=== PATIENT | male | born 1940 | race African-American/Black ===

== ENCOUNTER 2017-06-06 19:00 | Emergency (ER) | payer MEDICARE, OTHER | END 2017-06-06 21:59 | disposition home or self-care (01) | LOC: ER 19:00 | DX: K94.29 Other complications of gastrostomy (principal) | CPT/HCPCS: 74018; 99284 ==

== ENCOUNTER 2017-07-20 16:05 | Emergency (ER) | payer MEDICARE, OTHER ==
[2017-07-20] MEDS ORDERED: CONTRAST GIVEN MC (17:15)
[2017-07-20] MEDS: IOHEXOL 240 MG/ML 50ML VIAL. PO (17:37)
== END 2017-07-20 19:00 | disposition home or self-care (01) ==
LOC: ER 16:05
DX: K94.23 Gastrostomy malfunction (principal); I11.9 Hypertensive heart disease without heart failure; E11.39 Type 2 diabetes mellitus with other diabetic ophthalmic complication; H40.9 Unspecified glaucoma; Z86.73 Personal history of transient ischemic attack (TIA), and cerebral infarction without residual deficits; G47.419 Narcolepsy without cataplexy; Y84.8 Other medical procedures as the cause of abnormal reaction of the patient, or of later complication, without mention of misadventure at the time of the procedure; Y82.8 Other medical devices associated with adverse incidents
CPT/HCPCS: 51702; 74018; 99284-25; Q9966

== ENCOUNTER 2017-07-21 07:13 | Emergency (ER) | payer MEDICARE, OTHER | END 2017-07-21 08:56 | disposition home or self-care (01) | LOC: ER 07:13 | DX: Z43.1 Encounter for attention to gastrostomy (principal); E11.51 Type 2 diabetes mellitus with diabetic peripheral angiopathy without gangrene; E11.39 Type 2 diabetes mellitus with other diabetic ophthalmic complication; H40.9 Unspecified glaucoma; K21.9 Gastro-esophageal reflux disease without esophagitis; I11.9 Hypertensive heart disease without heart failure; Z86.73 Personal history of transient ischemic attack (TIA), and cerebral infarction without residual deficits | CPT/HCPCS: 43760; 99284-25 ==

== ENCOUNTER 2018-04-23 23:57 | Observation (INO) | payer MEDICARE, OTHER ==
[~2018-04-23] VITALS: Ht 182.9 cm; Wt 84.9 kg
[~2018-04-23 23:57] MED LIST: ASPI-482 PO; CHOL10003 PO; DIVA250T PO; INSU100I13 SQ; METF850T8 PO; MULT-208 PO; TIMO5DRO5 EACHEYE; TRAV2.5D2 OU
[2018-04-24] MEDS ORDERED: LIDOCAINE/EPI/TETRACAINE TOPICAL GEL 3 ML. TP ONE (00:19)
[2018-04-24] MEDS ORDERED: LIDOCAINE 2% JELLY 6ML IN APPLICATOR. MM ONE (00:30)
--- NOTE | 2018-04-24 00:35 | PHYS DOC ---
Past Medical History Past Medical History: CVA, Depression, Diabetes-Type II, GERD, Glaucoma, Heart Disease, Hypertension, Stroke, Other Additional Past Medical Histor: PVD, NARCOLEPSY, WEAKNESS, DYSPHAGIA, BLINDNESS , COGNITIVE COMMUNICATION D/ Past Surgical History: Other Additional Past Surgical Histo: PEG TUBE PLACEMENT, UNKNOWN Alcohol Use: None Drug Use: None Adult General Chief Complaint Chief Complaint: GTUBE REPLACEMENT/MALFUNCTION HPI HPI Patient is a 78-year-old male who [facility] from [facility] with report that they found that patient had pulled his feeding tube. Staff were not able to give estimate of time as to when tube was pulled; however, patient had been sent over yesterday for the same complaint and reportedly had the tube replaced. Unable to obtain additional history from patient as patient has an expressive aphasia associated with prior stroke. Review of Systems Review of Systems Constitutional: Denies fever or chills [] Respiratory: Denies shortness of breath [] Cardiovascular: No additional information not addressed in HPI [] GI: Denies vomiting or diarrhea [] Unable to fully assess review of systems due to nonverbal state. Current Medications Current Medications Current Medications Medications (Trade) Dose Ordered Sig/Wayne Start Time Stop Time Status Last Admin Dose Admin Lidocaine HCl (Glydo (Lidocaine) Jelly) 1 becca 1X ONCE 04/24/18 00:30 04/24/18 00:31 DC Lidocaine/ Epinephrine (Let Topical) 3 ml STK-MED ONCE 04/24/18 00:19 04/24/18 00:21 DC Allergies Allergies Allergies Coded Allergies Type Severity Reaction Last Updated Verified No Known Drug Allergies 02/06/15 No Physical Exam Physical Exam Constitutional: Well developed, well nourished, no acute distress, non-toxic appearance. [] HENT: Normocephalic, atraumatic, bilateral external ears normal, oropharynx moist, no oral exudates, nose normal. [] Eyes: PERRLA, EOMI, conjunctiva normal, no discharge. [] Neck: Normal range of motion, no tenderness, supple, no stridor. [] Cardiovascular: Regular rate and rhythm [] Lungs & Thorax: Bilateral breath sounds clear to auscultation [] Abdomen: Bowel sounds normal, soft, no tenderness. In the left upper quadrant of the abdomen there is an ostomy site. Tissue is granulated over, closed. [] Skin: Warm, dry, no erythema, no rash. [] Extremities: No tenderness, no cyanosis, no clubbing. [] Neurologic: Awake and alert, no focal deficits noted. [] Current Patient Data Vital Signs Vital Signs Date Time Temp Pulse Resp B/P (MAP) Pulse Ox O2 Delivery O2 Flow Rate FiO2 04/24/18 00:07 97.1 63 20 175/83 (113) 100 Room Air 97.1 EKG EKG [] Radiology/Procedures Radiology/Procedures [] Course & Med Decision Making Course & Med Decision Making Pertinent Labs and Imaging studies reviewed. (See chart for details) Area around the stoma cleaned and draped in normal sterile fashion and lidocaine jelly was used for local anesthesia. An attempt was initially made with an 18 Omani G-tube without success. At this point a 16 Omani coud catheter was utilized in attempt to establish access through stoma without success. Patient will be admitted and GI consulted for replacement of PEG tube. Dragon Disclaimer Dragon Disclaimer This electronic medical record was generated, in whole or in part, using a voice recognition dictation system. Departure Departure Impression: Primary Impression: PEG (percutaneous endoscopic gastrostomy) adjustment/replacement/removal Disposition: ADMITTED INPATIENT Admitting Physician: Jonnie Tate Condition: GOOD Referrals: YARITZA VERGARA DO (PCP) TK AVILA Jr., DO Apr 24, 2018 00:35
[2018-04-24 02:30] VITALS: BP 166/74
[2018-04-24] MEDS ORDERED: ACET325T9 PO (03:08)
[2018-04-24] MEDS ORDERED: DIVA250T PO (03:08)
[2018-04-24] MEDS ORDERED: METF10007 PO (03:08)
[2018-04-24] MEDS ORDERED: MAGN2400 PO (03:08)
[2018-04-24] MEDS ORDERED: LOSA-73 PO (03:08)
[2018-04-24] MEDS ORDERED: CYAN10002 IM (03:08)
[2018-04-24] MEDS ORDERED: CHOL500050 PO (03:08)
[2018-04-24] MEDS ORDERED: ATOR10TA60 PO (03:08)
[2018-04-24] MEDS ORDERED: CLOP75TA PO (03:08)
[2018-04-24] MEDS ORDERED: CALC625T PO (03:08)
[2018-04-24] MEDS ORDERED: LATA2.5D3 EACHEYE (03:08)
[2018-04-24] MEDS ORDERED: SENN-80 PO (03:08)
[2018-04-24 07:00] VITALS: BP 126/76
--- NOTE | 2018-04-24 09:52 | PDOC2 ---
GI CONSULT Reason For Consult: Replace PEG tube HPI: HPI: 78 [facility]/o male from [facility] who has pulled has been to the ER 4-5 times this year from [facility] w/ need for G tube replacement after it fell out of was pulled out. Unable to be replaced last night, also unable to place catheter in PEG site. Per RN, a senior manufacturing supervisor from the senior care called and said he has been maintaining his weight w/ PO intake - she feels he does not need PEG replacement. The patient also indicates he can eat and does not desire PEG replacement. Reviewed chart - had colonoscopy [place] [address] Flores which showed hemorrhoids and an adenomatous polyp in the transverse colon. PMH: PMH: per chart - CVA, HTN, HLD, PVD, WA, DM, GERD, depression, glaucoma, adenomatous colon polyp, hemorrhoids, PEG placement FH: Family History: No pertinent hx Social History: Smoke: Quit ALCOHOL: none Drugs: None ROS: Difficult to obtain, denies pain. Vitals: Vitals: Vital Signs Date Time Temp Pulse Resp B/P (MAP) Pulse Ox O2 Delivery O2 Flow Rate FiO2 04/24/18 07:00 98.1 60 17 126/76 (93) 98 Room Air 98.1 Labs: Labs: Laboratory Tests Test 04/24/18 07:26 04/24/18 08:13 Glucose (Fingerstick) 65 mg/dL (70-99) 113 mg/dL (70-99) Allergies: Coded Allergies: No Known Drug Allergies (Unverified , 02/06/15) Medications: Current Medications Medications (Trade) Dose Ordered Sig/Wayne Route PRN Reason Start Time Stop Time Status Last Admin Dose Admin Lidocaine HCl (Glydo (Lidocaine) Jelly) 1 becca 1X ONCE MM 04/24/18 00:30 04/24/18 00:31 DC 04/24/18 00:45 Imaging: Imaging: - PE: GEN: NAD HEENT: Atraumatic, PERRL LUNGS: CTAB HEART: RRR ABD: NABS, S/ND, PEG site w/ minimal drainage on bandage EXTREMITY: No edema SKIN: No rashes, no jaundice NEURO/PSYCH: awake and alert, speech a bit difficult to understand A/P: A/P: PEG tube dislodgement HTN, h/o CVA w/ dysphagia CRC scree, h/o adenomatous polyp - colonoscopy [address] Flores -- Maintaining weight w/ oral intake at senior care. Will ask [facility] to comment - if safe for PO, no plans to replace PEG. SALLY AMOS Apr 24, 2018 09:52
[2018-04-24] MEDS ORDERED: PANTOPRAZOLE IV PUSH 40 MG VIAL. IVP SCH (10:00)
[2018-04-24 11:00] VITALS: BP 148/88
--- NOTE | 2018-04-24 13:10 | DISCH ---
DISCHARGE DISCHARGE INFORMATION: FINAL DIAGNOSIS Problems Medical Problems: (1) PEG (percutaneous endoscopic gastrostomy) adjustment/replacement/removal Status: Acute CONDITION ON DISCHARGE: Stable CODE STATUS: Code Status: Full LONGTERM: SNF STAY <30 DAYS: No HOSPICE: HOSPICE: No HOSPICE EVAL & TREAT: No LTAC: ADMIT TO LTAC: No POST DISCHARGE ORDERS: ACTIVITY ORDERS: Bedrest today DIET AFTER DISCHARGE: As per [facility] TREATMENT/EQUIPMENT ORDERS: Physical Therapy For: Evalulation/Treatment Occupational Therapy For: Evaluation/Treatment DISCHARGE MEDICATIONS: Home Meds Reported Medications Acetaminophen (TYLENOL) 325 Mg Tablet, 1 TAB PO PRN Q6HRS PRN for PAIN, #30 TAB 04/24/18 Sennosides (SENNA) 8.6 Mg Tablet, 8.6 MG PO PRN DAILY PRN for CONSTIPATION, TAB 04/24/18 Clopidogrel Bisulfate (CLOPIDOGREL) 75 Mg Tablet, 1 TAB PO DAILY for CVA , #90 TAB 1 Refill 04/24/18 Magnesium Hydroxide (MILK OF MAGNESIA) 2,400 Mg/10 Ml Oral.susp, 2400 MG PO PRN DAILY PRN for CONSTIPATION, MISC 04/24/18 Losartan Potassium (LOSARTAN POTASSIUM) 50 Mg Tablet, 50 MG PO DAILY for HYPERTENSION, TAB 04/24/18 Atorvastatin Calcium (ATORVASTATIN CALCIUM) 10 Mg Tablet, 1 TAB PO DAILY for CAD , #30 TAB 5 Refills 04/24/18 Latanoprost (LATANOPROST) 2.5 Ml Drops, 1 DROP EACHEYE QHS for GLAUCOMA , #7.5 ML 3 Refills 04/24/18 Calcium Polycarbophil (FIBERCON) 625 Mg Tablet, 625 MG PO DAILY for bowel regulation, TAB 04/24/18 Divalproex Sodium (DEPAKOTE ER) 250 Mg Tab.er.24h, 1 TAB PO QHS for vascular dementia , #30 TAB 2 Refills 04/24/18 Cyanocobalamin (Vitamin B-12) (CYANOCOBALAMIN INJECTION) 1,000 Mcg/1 Ml Vial, 1 ML IM QMONTH for vitamin deficiency, #1 VIAL 3 Refills 04/24/18 Cholecalciferol (Vitamin D3) (VITAMIN D3) 50,000 Unit Capsule, 42921 UNIT PO WEEKLY for VITAMIN DEFICIENCY , CAP 04/24/18 Metformin Hcl (METFORMIN HCL) 1,000 Mg Tablet, 1000 MG PO BIDWMEALS for DM II, TAB 04/24/18 Timolol Maleate (TIMOLOL MALEATE) 10 Ml Drops, 1 DROP EACHEYE DAILYWBKFT, #5 ML 5 Refills 02/22/15 Insulin Glargine,Hum.rec.anlog (LANTUS SOLOSTAR) 100 Unit/1 Ml Insuln.pen, 15 UNITS SQ QHS for DM II, #15 ML 3 Refills 02/22/15 Divalproex Sodium (DEPAKOTE ER) 250 Mg Tab.er.24h, 125 MG PO DAILY, TAB.SR 02/22/15 Discontinued Reported Medications Cholecalciferol (Vitamin D3) (VITAMIN D3) 1,000 Unit Tablet, 2000 UNIT PO 02/22/15 Travoprost (Benzalkonium) (TRAVOPROST 0.004% EYE DROP) 2.5 Ml Drops, 1 DROP OU QHS, BOTTLE 02/22/15 Multivitamin (MULTI-DAY VITAMINS) 1 Each Tablet, 1 EACH PO 02/22/15 Metformin Hcl (METFORMIN HCL) 850 Mg Tablet, 1 TAB PO BID, #60 TAB 5 Refills 02/22/15 Aspirin (ASPIR 81) 81 Mg Tablet., 1 TAB PO DAILY, #30 TAB 5 Refills 02/22/15 RONAL NICHOLE III DO Apr 24, 2018 13:10
--- NOTE | 2018-04-24 13:29 | SSS ---
ADMIT DATE: 04/24/2018 CHIEF COMPLAINT: "Pulled my PEG." HISTORY OF PRESENT ILLNESS: The patient is a pleasant elderly male who resides in a snf. Basically, he has a history of stroke with severe expressive aphasia and he has a PEG tube. He pulled it out. He has been eating food, so we admitted the patient. We consulted GI. They really did not want to put another tube and I certainly agree. We are going to have speech therapy to look at him and if he is doing well, we plan to discharge back to his facility. PAST MEDICAL HISTORY: Stroke, hypertension, hyperlipidemia, depression, diabetes, GERD, glaucoma, coronary artery disease, PVD, narcolepsy, weakness, dysphagia, blindness PEG placement. ALLERGIES: None. FAMILY HISTORY: Diabetes. SOCIAL HISTORY: He lives in a facility. He does not drink, smoke or take drugs. MEDICATIONS: Reviewed. He is on 15 including Plavix, atorvastatin, losartan, Tylenol, Depakote, timolol, FiberCon, milk of mag, senna, metformin, insulin, and vitamins. REVIEW OF SYSTEMS: Unable to obtain. The patient is nonverbal. PHYSICAL EXAMINATION: VITAL SIGNS: Temperature afebrile, pulse 72, respirations 18, blood pressure 148/80. GENERAL: He is alert, awake, but can speak. HEART: Distant S1, S2. LUNGS: Clear. ABDOMEN: Soft. There is an old PEG site. It is clean, dry and intact, dressing over it. ENDOCRINE: No thyromegaly. LYMPHATICS: No cervical nodes. HEMATOPOIETIC: No bruising. PSYCHIATRIC: He seems stable. EXTREMITIES: Trace edema. LABORATORY DATA: Glucose is 91. ASSESSMENT AND PLAN: Pulled my PEG. The patient seems to be doing okay without a PEG. I think we can go ahead and just send him back to his snf with a regular diet as recommended by speech therapy if they agree. We will go ahead and await for them to see him. For now, resumed his home meds. I discussed the case with the nurse. PROGNOSIS: Long-term guarded. RONAL NICHOLE DO DR: GEOFF/lizy JOB#: [id number] / [id number]
--- NOTE | 2018-04-24 13:41 | NUR ---
MELODY following for discharge planning. Discussed with RN. Pt can discharge today to [facility]. [facility] (ph:[phone], fax: [phone]). [facility] [place] and will contact MELODY to set up time for transportation. MELODY will continue to follow. RN notified.
[2018-04-24 14:59] VITALS: BP 151/73
--- NOTE | 2018-04-24 15:30 | NUR ---
SW following. [facility] will transport pt at 1600. RN notified.
--- NOTE | 2018-04-24 16:27 | NUR ---
Discharge Note: [facility]ERT[facility] Discharge instructions and discharge home medications reviewed with Other facility and a copy given. All questions have been answered and understanding verbalized. Report was called in to RN at [facility] The following instructions and handouts were given: Discharge packet and Dysphagia Diet included. Discontinued lines and drains: No lines or drains Patient discharged to [facility] via private transport.
== END 2018-04-24 15:55 ==
LOC: ER 23:57 → 5 SOUTH 04-24 01:45
PROVIDERS: ADMIT Family Medicine; ATTEND Family Medicine
DX: K94.23 Gastrostomy malfunction (principal); E11.51 Type 2 diabetes mellitus with diabetic peripheral angiopathy without gangrene; E78.5 Hyperlipidemia, unspecified; I10 Essential (primary) hypertension; I25.10 Atherosclerotic heart disease of native coronary artery without angina pectoris; F32.9 Major depressive disorder, single episode, unspecified; H54.7 Unspecified visual loss; K21.9 Gastro-esophageal reflux disease without esophagitis; H40.9 Unspecified glaucoma; Z93.1 Gastrostomy status; Z83.3 Family history of diabetes mellitus; Z79.899 Other long term (current) drug therapy
CPT/HCPCS: 82962; 87641; 92610; 99284; G0378; 36415; G0379